=== PATIENT | male | born 1995 | race Hispanic/Latino ===

== ENCOUNTER 2019-09-12 17:18 | Emergency (ER) | payer SELFPAY ==
--- NOTE | 2019-09-12 17:41 | EDPHYS ---
Physician Documentation [facility] Name: Aakash Richardson Age: 24 yrs Sex: Male : 1995 Arrival Date: 09/12/2019 Time: 17:20 Bed 30 Private MD: ED Physician Favio Peguero HPI: 09/12 17:30 This 24 yrs old Male presents to ER via Ambulatory with complaints of Finger pm1 laceration. 17:30 The patient or guardian reports a laceration. The complaints affect the palmar aspect pm1 of distal phalanx of right index finger. Context: The problem was sustained at work, resulted from Accidentally caught his finger between two metal sheets he was pushing together. 17:30 Onset: The symptoms/episode began/occurred yesterday, at 14:30. Modifying factors: The pm1 symptoms are alleviated by pressure to area, bandages. Associated signs and symptoms: Pertinent negatives: cyanosis distally, decreased sensation distally, numbness distally, tingling distally. Severity of symptoms: in the emergency department the symptoms are unchanged. The patient has not experienced similar symptoms in the past. It is unknown whether or not the patient has recently seen a physician. Patient with laceration to right index finger at 1430 yesterday that occurred at work. At work today his coworkers noticed it and recommended that he get it evaluated. did not bother the patient because it is not actively bleeding and he is left hand dominant. Historical: - Allergies: 17:50 No Known Allergies; iw - Home Meds: 17:50 None [Active]; iw - PMHx: 17:50 None; iw - PSHx: 17:50 None; iw - Immunization history:: Last tetanus immunization: unknown. - Social history:: Smoking status: Patient denies any tobacco usage or history of. - Ebola Screening: : Patient negative for fever greater than or equal to 101.5 degrees Fahrenheit, and additional compatible Ebola Virus Disease symptoms Patient denies exposure to infectious person Patient denies travel to an Ebola-affected area in the 21 days before illness onset No symptoms or risks identified at this time. ROS: 17:50 Constitutional: Negative for fever, chills, and weight loss, Cardiovascular: Negative pm1 for chest pain, palpitations, and edema, Respiratory: Negative for shortness of breath, cough, wheezing, and pleuritic chest pain, Abdomen/GI: Negative for abdominal pain, nausea, vomiting, diarrhea, and constipation, Back: Negative for injury and pain. 17:50 Neuro: Negative for headache, weakness, numbness, tingling, and seizure. 17:50 MS/extremity: Positive for laceration, of the palmar aspect of distal phalanx of right index finger. 17:50 Skin: Positive for laceration(s), of the palmar aspect of distal phalanx of right index finger. 17:50 All other systems are negative. Exam: 17:50 Constitutional: This is a well developed, well nourished patient who is awake, alert, pm1 and in no acute distress. Head/Face: Normocephalic, atraumatic. Neck: Trachea midline, no thyromegaly or masses palpated, and no cervical lymphadenopathy. Supple, full range of motion without nuchal rigidity, or vertebral point tenderness. No Meningismus. Chest/axilla: Normal chest wall appearance and motion. Nontender with no deformity. No lesions are appreciated. Cardiovascular: Regular rate and rhythm with a normal S1 and S2. No gallops, murmurs, or rubs. Normal PMI, no JVD. No pulse deficits. Respiratory: Lungs have equal breath sounds bilaterally, clear to auscultation and percussion. No rales, rhonchi or wheezes noted. No increased work of breathing, no retractions or nasal flaring. Back: No spinal tenderness. No costovertebral tenderness. Full range of motion. 17:50 Skin: Appearance: normal except for affected area, abscess, not appreciated, cellulitis, is not appreciated, injury, laceration(s), that can be described as clean, no foreign body, irregular, without bleeding, 1.5 cm semilunar shaped laceration to palmar aspect of distal phalanx of right index finger. 17:50 Neuro: Orientation: is normal, Motor: is normal, moves all fours. Vital Signs: 18:13 BP 132 / 75; Pulse 88; Resp 18; Temp 97.5; Pulse Ox 100% on R/A; aj1 MDM: 17:23 Patient medically screened. pm1 17:30 ED course: Patient's laceration to 2nd right finger occurred greater than 24 hours ago. pm1 Occurred at 1430 yesterday. He was sliding two pieces of metal together and his 2nd right finger got caught in between. Presenting with laceration to palmar surface. Informed patient that unfortunately I am not able to repair it due to the amount of time that has passed and the risk for infection. I recommended an x-ray of the finger to evaluate for possible fractures. Patient refused since he is worried about the bill. I will give the patient a tetanus shot and discharge him home with antibiotics and a finger splint. 17:30 Refusal of service: The patient/guardian displays adequate decision making capability pm1 and despite a detailed discussion of alternatives, benefits, risks, and consequences refuses: all X-rays. 17:30 Counseling: I had a detailed discussion with the patient and/or guardian regarding: the pm1 historical points, exam findings, and any diagnostic results supporting the discharge/admit diagnosis, the need for outpatient follow up, to return to the emergency department if symptoms worsen or persist or if there are any questions or concerns that arise at home. 18:12 Data reviewed: vital signs. Data interpreted: Pulse oximetry: on room air is 100 %. pm1 Interpretation: normal. 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 Exp: aj1 10/22/2020. Lot #: [id number]. } Route: IM; Site: right deltoid; 18:13 Follow up: Response: No adverse reaction [facility] 18:12 Drug: Triple Antibiotic Ointment 1 application Route: Topical; Site: affected area; aj1 18:13 Follow up: Response: No adverse reaction aj1 Disposition: 09/13 15:48 Co-signature as Attending Physician, Favio Peguero MD. mn2 Disposition: 09/12/19 17:40 Discharged to Home. Impression: Laceration without foreign body of right index finger without damage to nail. - Condition is Stable. - Discharge Instructions: Cast or Splint Care, Adult, Nonsutured Laceration Care. - Prescriptions for Keflex 500 mg Oral Capsule - take 1 capsule by ORAL route every 6 hours for 10 days; 40 capsule. - Medication Reconciliation Form, Thank You Letter, Antibiotic Education, Prescription Opioid Use form. - Follow up: Emergency Department; When: As needed; Reason: Worsening of condition. Follow up: Private Physician; When: 2 - 3 days; Reason: Recheck today's complaints, Continuance of care, Re-evaluation by your physician. Follow up: Dillon Germain MD; When: 2 - 3 days; Reason: Recheck today's complaints, Continuance of care, Re-evaluation by your physician. - Problem is new. - Symptoms have improved. Signatures: Maryr Granado RN RN aj1 Lorna Perez RN RN iw Tramaine Carmona, MJ MACHINIST pm1 Favio Peguero MD MD ma2 Corrections: (The following items were deleted from the chart) 09/12 18:15 17:40 09/12/2019 17:40 Discharged to Home. Impression: Laceration without foreign body aj1 of right index finger without damage to nail. Condition is Stable. Forms are Medication Reconciliation Form, Thank You Letter, Antibiotic Education, Prescription Opioid Use. Follow up: Emergency Department; When: As needed; Reason: Worsening of condition. Follow up: Private Physician; When: 2 - 3 days; Reason: Recheck today's complaints, Continuance of care, Re-evaluation by your physician. Follow up: Dillon Germain; When: 2 - 3 days; Reason: Recheck today's complaints, Continuance of care, Re-evaluation by your physician. Problem is new. Symptoms have improved. pm1
--- NOTE | 2019-09-12 17:41 | ER ---
Nurse's Notes [facility] Name: Aakash Richardson Age: 24 yrs Sex: Male : 1995 Arrival Date: 09/12/2019 Time: 17:20 Bed 30 Private MD: Diagnosis: Laceration without foreign body of right index finger without damage to nail Presentation: 09/12 17:36 Presenting complaint: Patient states: got his 2nd digit on right hand smashed between iw two pieces of metal yesterday at work at 230 pm. Transition of care: patient was not received from another setting of care. Onset of symptoms was September 11, 2019. Risk Assessment: Do you want to hurt yourself or someone else? Patient reports no desire to harm self or others. Initial Sepsis Screen: Does the patient meet any 2 criteria? No. Patient's initial sepsis screen is negative. Does the patient have a suspected source of infection? No. Patient's initial sepsis screen is negative. Care prior to arrival: None. 17:36 Method Of Arrival: Ambulatory iw 17:36 Acuity: GASPER 4 iw Triage Assessment: 18:13 General: Appears in no apparent distress. comfortable, Behavior is calm, cooperative, aj1 appropriate for age. Pain: Denies pain. Historical: - Allergies: 17:50 No Known Allergies; iw - Home Meds: 17:50 None [Active]; iw - PMHx: 17:50 None; iw - PSHx: 17:50 None; iw - Immunization history:: Last tetanus immunization: unknown. - Social history:: Smoking status: Patient denies any tobacco usage or history of. - Ebola Screening: : Patient negative for fever greater than or equal to 101.5 degrees Fahrenheit, and additional compatible Ebola Virus Disease symptoms Patient denies exposure to infectious person Patient denies travel to an Ebola-affected area in the 21 days before illness onset No symptoms or risks identified at this time. Screenin:14 Abuse screen: Denies threats or abuse. Denies injuries from another. Nutritional aj1 screening: No deficits noted. Tuberculosis screening: No symptoms or risk factors identified. Fall Risk None identified. Assessment: 18:14 General: Appears in no apparent distress. comfortable, Behavior is calm, cooperative, aj1 appropriate for age. Pain: Denies pain. Neuro: Level of Consciousness is awake, alert, obeys commands. Cardiovascular: Patient's skin is warm and dry. Respiratory: Airway is patent Respiratory effort is even, unlabored, Respiratory pattern is regular, symmetrical. GI: No signs and/or symptoms were reported involving the gastrointestinal system. : No signs and/or symptoms were reported regarding the genitourinary system. EENT: No signs and/or symptoms were reported regarding the EENT system. Derm: Skin is pink, warm \T\ dry. Injury Description: Laceration. Vital Signs: 18:13 BP 132 / 75; Pulse 88; Resp 18; Temp 97.5; Pulse Ox 100% on R/A; aj1 ED Course: 17:20 Patient arrived in ED. mr 17:23 Tramaine Carmona NP is PHCP. pm1 17:23 Favio Peguero MD is Attending Physician. pm1 17:37 Triage completed. iw 17:40 Dillon Germain MD is Referral Physician. pm1 17:46 Marry Granado RN is Primary Nurse. aj1 18:14 Patient has correct armband on for positive identification. aj1 18:14 No provider procedures requiring assistance completed. Patient did not have IV access aj1 during this emergency room visit. 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 Exp: aj1 10/22/2020. Lot #: [id number]. } Route: IM; Site: right deltoid; 18:13 Follow up: Response: No adverse reaction aj1 18:12 Drug: Triple Antibiotic Ointment 1 application Route: Topical; Site: affected area; aj1 18:13 Follow up: Response: No adverse reaction aj1 Outcome: 17:40 Discharge ordered by MD. pm1 18:14 Discharged to home ambulatory. aj1 18:14 Condition: good 18:14 Discharge instructions given to patient, Instructed on discharge instructions, follow up and referral plans. medication usage, Demonstrated understanding of instructions, follow-up care, medications, Prescriptions given X 1. 18:15 Patient left the ED. aj1 Signatures: Marry Granado RN RN aj BarrientosJessica Lorna Perez RN RN iw Tramaine Carmona, MJ GAS FURNACE INSTALLER pm1
[2019-09-12] MEDS ORDERED: TETANUS & DIPHTHERIA TOX,ADULT 0.5 ML VIAL ONE (17:53)
[2019-09-12 19:38] VITALS: BP 132/75; TEMP 97.5; O2SAT 100
== END 2019-09-12 18:15 | disposition home or self-care (01) ==
LOC: ER 17:18
DX: S61.210A Laceration without foreign body of right index finger without damage to nail, initial encounter (principal); W45.8XXA Other foreign body or object entering through skin, initial encounter; Y93.89 Activity, other specified; Y92.89 Other specified places as the place of occurrence of the external cause; Y99.0 Civilian activity done for income or pay; Z23 Encounter for immunization
CPT/HCPCS: 90471; 90714; 99283